=== PATIENT | female | born 1945 | race Native Hawaiian/Other Pacific Islander ===

== ENCOUNTER 2016-04-10 11:03 | Outpatient (CLI) | payer OTHER, MEDICARE ==
[~2016-04-10 11:03] MED LIST: ASA LO-DOSE81 MG PO; BENICAR20 MG PO; BENICAR5 MG PO; CRESTOR5 MG PO; FISH OIL1000 M1 OR; FLAXSEED OIL1200 MG OR; GARLIC OIL1000 M1 OR; GLUCOS/CHOND1 CA1 OR; MACROBID100 MG OR
[2016-04-10 12:44] LABS: PLATELET COUNT 307 K/uL (152-353)
[2016-04-11 14:24] LABS: POTASSIUM 4.8 mmol/L (3.6-5.2); SODIUM 138.6 mmol/L (136-145)
[2016-04-11 14:26] LABS: LDL CHOLESTEROL 62.7 mg/dL (0-99*)
== END 2016-04-10 23:01 | disposition home or self-care (01) ==
LOC: LAB 11:03
PROVIDERS: Nurse Practitioner Family
DX: I25.10 Atherosclerotic heart disease of native coronary artery without angina pectoris (principal); E78.4 Other hyperlipidemia; I10 Essential (primary) hypertension; Z79.899 Other long term (current) drug therapy; Z51.81 Encounter for therapeutic drug level monitoring
CPT/HCPCS: 80053; 80061; 83036; 84439; 84443; 85027

== ENCOUNTER 2016-04-14 08:42 | Outpatient (CLI) | payer OTHER, MEDICARE | END 2016-04-14 19:08 | disposition home or self-care (01) | LOC: US 08:42 | DX: R10.13 Epigastric pain (principal) ==

== ENCOUNTER 2016-07-10 13:51 | Outpatient (CLI) | payer OTHER, MEDICARE ==
[2016-07-10 15:09] LABS: PLATELET COUNT 265 K/uL (152-353)
[2016-07-10 15:31] LABS: POTASSIUM 4.9 mmol/L (3.6-5.2)
== END 2016-07-10 19:29 | disposition home or self-care (01) ==
LOC: LAB 13:51
PROVIDERS: Nurse Practitioner Family
DX: Z00.00 Encounter for general adult medical examination without abnormal findings (principal); I10 Essential (primary) hypertension; E78.4 Other hyperlipidemia; I48.91 Unspecified atrial fibrillation; E55.9 Vitamin D deficiency, unspecified; Z79.899 Other long term (current) drug therapy; Z51.81 Encounter for therapeutic drug level monitoring
CPT/HCPCS: 80053; 80061; 82306; 82607; 83036; 84436; 84443; 85027

== ENCOUNTER 2016-11-09 14:17 | Outpatient (CLI) | payer OTHER, MEDICARE ==
[2016-11-09 14:36] LABS: PLATELET COUNT 282 K/uL (152-353)
[2016-11-09 14:53] LABS: POTASSIUM 4.6 mmol/L (3.6-5.2)
== END 2016-11-09 15:20 | disposition home or self-care (01) ==
LOC: LAB 14:17
PROVIDERS: Nurse Practitioner Family
DX: E78.4 Other hyperlipidemia (principal); I10 Essential (primary) hypertension; I48.91 Unspecified atrial fibrillation; E55.9 Vitamin D deficiency, unspecified; Z79.899 Other long term (current) drug therapy; Z51.81 Encounter for therapeutic drug level monitoring
CPT/HCPCS: 80053; 80061; 82306; 83036; 84436; 84443; 85027

== ENCOUNTER 2017-03-02 10:21 | Outpatient (CLI) | payer OTHER, MEDICARE | END 2017-03-02 11:45 | disposition home or self-care (01) | LOC: MAMMO 10:21 | DX: Z12.31 Encounter for screening mammogram for malignant neoplasm of breast (principal); M81.0 Age-related osteoporosis without current pathological fracture ==

== ENCOUNTER 2017-06-07 13:47 | Outpatient (CLI) | payer OTHER, MEDICARE ==
[2017-06-07 14:59] LABS: PLATELET COUNT 271 K/uL (152-353)
[2017-06-07 16:13] LABS: POTASSIUM 4.5 mmol/L (3.6-5.2)
== END 2017-06-07 22:57 | disposition home or self-care (01) ==
LOC: LAB 13:47
PROVIDERS: Nurse Practitioner Family
DX: E78.4 Other hyperlipidemia (principal); I10 Essential (primary) hypertension; I48.91 Unspecified atrial fibrillation; Z79.899 Other long term (current) drug therapy; Z51.81 Encounter for therapeutic drug level monitoring
CPT/HCPCS: 80053; 80061; 83036; 84436; 84443; 85027

== ENCOUNTER 2017-10-03 14:52 | Outpatient (CLI) | payer OTHER, MEDICARE ==
[2017-10-03 16:00] LABS: PLATELET COUNT 287 K/uL (152-353)
[2017-10-03 16:25] LABS: POTASSIUM 5.2 mmol/L (3.6-5.2)
== END 2017-10-03 22:47 | disposition home or self-care (01) ==
LOC: LAB 14:52
PROVIDERS: Nurse Practitioner Family
DX: E78.4 Other hyperlipidemia (principal); I10 Essential (primary) hypertension; I48.91 Unspecified atrial fibrillation; Z79.899 Other long term (current) drug therapy; Z51.81 Encounter for therapeutic drug level monitoring
CPT/HCPCS: 80053; 80061; 83036; 84436; 84443; 85027